=== PATIENT | male | born 1980 | race Caucasian/White ===

== ENCOUNTER 2018-01-19 09:45 | Day surgery (SDC) | payer OTHER ==
[~2018-01-19] VITALS: Ht 190.5 cm; Wt 90.7 kg
[2018-01-19] VITALS (12 sets, daily range): BP systolic 129–148; BP diastolic 74–88
[~2018-01-19 09:45] MED LIST: ceFAZolin 1gm/50ml Premix 50 ML IV ONE; celeBREX 200mg Cap **SURGERY PATIENTS ONLY ORAL ONE; oxyCONTIN 20mg tab ORAL ONE
[2018-01-19] MEDS ORDERED: Propofol 200mg/20ml IV ONE (10:17)
[2018-01-19] MEDS ORDERED: Lidocaine 1% MPF 10mg/ml 5ml ONE (10:17)
[2018-01-19] MEDS ORDERED: Dexamethasone 4mg/ml vial ONE ×2 (10:17→10:18)
[2018-01-19] MEDS ORDERED: Ropivacaine 5mg/ml Vial 30ml INJ ONE (10:18)
[2018-01-19] MEDS ORDERED: Alfentanil 2ml Inj ONE (10:28)
[2018-01-19] MEDS ORDERED: PROSCAR5 MG ORAL (10:45)
[2018-01-19] MEDS ORDERED: LR 1000ml 1,000 ML IVLG SCH (10:46)
--- NOTE | 2018-01-19 10:46 | Anethesia Preoperative Eval ---
Anesthesia Pre-op PMH/ROS General Date of Evaluation: Jan 19, 2018 Time of Evaluation: 11:26 Anesthesiologist: Burke ASA Score: ASA 1 Mallampati Score Class I : Soft palate, uvula, fauces, pillars visible Class II: Soft palate, uvula, fauces visible Class III: Soft palate, base of uvula visible Class IV: Only hard plate visible Mallampati Classification: Class I Surgeon: Raoul Diagnosis: L Arm Pain Surgical Procedure: L Pectoralis Major Repair Anesthesia History: none Family History: no anesthesia problems Allergies: Coded Allergies: No Known Allergies (Unverified , 01/18/18) Medications: see eMAR Anesthesia Pre-op Phys. Exam Physician Exam Last Vital Signs Date Time Temp Pulse Resp B/P (MAP) Pulse Ox O2 Delivery O2 Flow Rate FiO2 01/19/18 10:43 98.0 62 18 132/76 (94) 100 98.0 Constitutional: NAD Neurologic: CN 2-12 intact Cardiovascular: RRR Respiratory: CTA Gastrointestinal: S/NT/ND Airway Exam Mallampati Score: Class II MO: full ROM: full Teeth: intact Anesthesia Pre-op A/P Risk Assessment & Plan Assessment: ASA 1 Plan: GA, BIS, L Supraclavicular Block Status Change Before Surgery: No Pre-Antibiotics Dru Gram Ancef IV Given Within 1 Hr of Incision: Yes Time Given: 11:52 Jonathon Turk MD Jan 19, 2018 10:46
[2018-01-19] MEDS ORDERED: oxyCONTIN 20mg tab ORAL ONE (10:48)
[2018-01-19] MEDS ORDERED: celeBREX 200mg Cap **SURGERY PATIENTS ONLY ORAL ONE (10:48)
[2018-01-19 10:57] LABS: BASOPHILS % (AUTO) 1.7 % (0.0-2.0); EOSINOPHILS % (AUTO) 2.6 % (0.0-3.0); HEMATOCRIT 51.5 % (42.0-52.0); HEMOGLOBIN 16.9 G/DL (14.2-18.0); LYMPHOCYTES % (AUTO) 29.9 % (20.0-45.0); MEAN CORPUSCULAR VOLUME 89 FL (80-99); MONOCYTES % (AUTO) 7.5 % (1.0-10.0); NEUTROPHILS % (AUTO) 58.3 % (45.0-75.0); PLATELET COUNT 164 K/UL (150-450); RED CELL DISTRIBUTION WIDTH 11.3 % (11.6-14.8); WHITE BLOOD COUNT 4.6 K/UL (4.8-10.8)
[2018-01-19] MEDS ORDERED: Midazolam 2mg/2ml Inj IVP PRN (11:00)
[2018-01-19] MEDS ORDERED: LORazepam Inj 2mg/ml 1ml IV PRN (11:00)
[2018-01-19] MEDS ORDERED: DiphenhydrAMINE 50mg/ml Inj IVP PRN (11:00)
[2018-01-19] MEDS ORDERED: Labetalol 5mg/ml 20ml vial IV PRN (11:00)
[2018-01-19] MEDS ORDERED: Hydromorphone 0.5mg/0.5ml inj IVP PRN (11:00)
[2018-01-19] MEDS ORDERED: oxyCODONE HCL/Acetaminophen 5/325mg ORAL PRN (11:00)
[2018-01-19] MEDS ORDERED: Metoclopramide 10mg/2ml Inj IVP PRN (11:00)
[2018-01-19] MEDS ORDERED: Atropine Inj 1mg/10ml Syr IV PRN (11:00)
[2018-01-19] MEDS ORDERED: HYDROcodone/Acetamin 7.5/325 tab ORAL PRN (11:00)
[2018-01-19] MEDS ORDERED: fentaNYL 100 mcg/2 mL IV PRN (11:00)
[2018-01-19] MEDS ORDERED: Ketorolac 30mg Inj IV PRN ×2 (11:00)
[2018-01-19] MEDS ORDERED: Norco 5mg/325mg tab ORAL PRN ×2 (11:00→12:00)
[2018-01-19] MEDS ORDERED: LR 1000ml ONE (11:30)
[2018-01-19] MEDS ORDERED: Sterile Water Irrig 1000ml IRRIG ONE (11:30)
[2018-01-19] MEDS ORDERED: NS Irrig 1000ml ONE (11:30)
[2018-01-19 11:31] LABS: ALANINE AMINOTRANSFERASE 35 U/L (12-78); ALBUMIN 4.3 G/DL (3.4-5.0); ALBUMIN/GLOBULIN RATIO 1.2 (1.0-2.7); ALKALINE PHOSPHATASE 54 U/L (46-116); ANION GAP 11 mmol/L (5-15); ASPARTATE AMINO TRANSFERASE 32 U/L (15-37); BILIRUBIN,TOTAL 1.2 MG/DL (0.2-1.0); BLOOD UREA NITROGEN 23 mg/dL (7-18); CARBON DIOXIDE 24 MMOL/L (21-32); CHLORIDE 106 MMOL/L (98-107); CREATININE 1.1 MG/DL (0.55-1.30); POTASSIUM 4.1 MMOL/L (3.5-5.1); SODIUM 141 MMOL/L (136-145)
[2018-01-19 11:38] LABS: BILIRUBIN,DIRECT 0.2 MG/DL (0.0-0.3)
[2018-01-19] MEDS ORDERED: EPINEPHrine 1mg/1ml Amp ONE (11:52)
[2018-01-19] MEDS ORDERED: Lidocaine 1% 10mg/ml/Epi 0.005mg/ml 30ml vial INJ ONE (11:52)
[2018-01-19] MEDS ORDERED: Bupivacaine 0.25% Inj 30ml INJ ONE (11:52)
[2018-01-19] MEDS ORDERED: Bacitracin 50000 Units Vial ONE (11:53)
[2018-01-19] MEDS ORDERED: NeoSporin Gu Irrig 1ml Amp IRRIG ONE (11:53)
--- NOTE | 2018-01-19 11:57 | Pre-Procedure Note/Attestation ---
Pre-Procedure Note/Attestation Complete Prior to Procedure Planned Procedure: left Procedure Narrative: open pectorlais muscle repair Indications for Procedure Pre-Operative Diagnosis: left pectoralis muscle tear Attestation I attest that I discussed the nature of the procedure; its benefits; risks and complications; and alternatives (and the risks and benefits of such alternatives ), prior to the procedure, with the patient (or the patient's legal bank representative). I attest that, if there was a reasonable possibility of needing a blood transfusion, the patient (or the patient's legal bank representative) was given the [facility] standardized written summary, pursuant to the Devin Bertha Blood Safety Act ([place] Health and Safety Code # 1645, as amended). I attest that I re-evaluated the patient just prior to the surgery and that there has been no change in the patient's H&P, except as documented below: Navneet Silveira MD Jan 19, 2018 11:57
--- NOTE | 2018-01-19 11:57 | Operative Note - PDOC ---
Operative Note Operative Note Pre-op Diagnosis: left pectoralis muscle tear Procedure: see op report Post-op Diagnosis: same as pre-op plus Anesthesia: regional Specimen: none Complications: none Condition: stable Estimated Blood Loss: none Implant(s) used?: Yes Navneet Silveira MD Jan 19, 2018 11:57
[2018-01-19 12:00] LABS: CALCIUM 9.7 MG/DL (8.5-10.1)
[2018-01-19] MEDS ORDERED: D5 1/2NS 1,000 ML IV SCH (12:00)
[2018-01-19] MEDS ORDERED: Tylenol #3 tab (300mg/30mg) ORAL PRN (12:00)
[2018-01-19] MEDS ORDERED: HYDROmorphone 1mg/ml Carpuject SUBQ PRN (12:00)
--- NOTE | 2018-01-19 12:30 | Immediate Post-Op Evaluation ---
Immediate Post-Op Evalulation Immediate Post-Op Evalulation Procedure: L Pectoralis Major Repair Date of Evaluation: Jan 19, 2018 Time of Evaluation: 13:57 IV Fluids: 500 LR Blood Products: 0 Estimated Blood Loss: 40 Urinary Output: 0 Blood Pressure Systolic: 136 Blood Pressure Diastolic: 79 Pulse Rate: 64 Respiratory Rate: 16 O2 Sat by Pulse Oximetry: 100 Temperature (Fahrenheit): 97.2 Pain Score (1-10): 2 Nausea: No Vomiting: No Complications 0 Patient Status: awake, reacts, patent, none Hydration Status: adequate Dru Gram Ancef IV Given Within 1 Hr of Incision: Yes Time Given: 11:53 Jonathon Turk MD Jan 19, 2018 12:30
--- NOTE | 2018-01-19 12:30 | 48 Hour Post Anesthesia Eval ---
Post Anesthesia Evaluation Procedure: L Pectoralis Major Repair Date of Evaluation: Jan 19, 2018 Time of Evaluation: 15:58 Blood Pressure Systolic: 134 0: 74 Pulse Rate: 64 Respiratory Rate: 18 Temperature (Fahrenheit): 98.2 O2 Sat by Pulse Oximetry: 100 Airway: patent Nausea: No Vomiting: No Pain Intensity: 2 Hydration Status: adequate Cardiopulmonary Status: Stable Mental Status/LOC: patient returned to baseline Follow-up Care/Observations: 0 Post-Anesthesia Complications: 0 Follow-up care needed: ready to discharge Jonathon Turk MD Jan 19, 2018 12:30
[2018-01-19] MEDS ORDERED: Lidocaine 1% Plain 30 ml INJ ONE (12:32)
--- NOTE | 2018-01-20 02:30 | Operative Note - Dictated ---
DATE OF OPERATION: 01/19/2018 PREOPERATIVE DIAGNOSIS: Left pectoralis major muscle tear. POSTOPERATIVE DIAGNOSIS: Left pectoralis major muscle tear. PROCEDURE: Open left pectoralis major repair, EndoButton. SURGEON: Navneet Silveira M.D. ANESTHESIA: Interscalene with general. INDICATION FOR PROCEDURE: The patient is a pleasant gentleman, who sustained a tear of the pectoralis major muscle. He has pain, deformity, difficulty with activities of daily living, therefore elected to undergo left shoulder open pectoralis major muscle repair. Risks, limitations, expectations, and complications of procedure were discussed in detail. All questions addressed. DESCRIPTION OF PROCEDURE: After informed consent was obtained, the patient was brought to the operating room. We placed the patient under general anesthesia. Interscalene block was placed. Left arm was prepped and draped in a sterile manner. An axillary incision was then made. The sternal head of the pectoralis major muscle was identified, mobilized and tacked with 3 FiberTape anchors. The anterior aspect of the humeral shaft was identified just lateral to the biceps tendon. The soft tissue was removed and was decorticated and 3 unicortical buttons were also placed. Once that was done, using Arthrex button technique, 3 buttons were placed in the cortical bone. The pectoralis major was then advanced to this area. It was nice and secure. Wound was copiously irrigated. Skin was closed using 3-0 Vicryl, 3-0 Monocryl, Steri-Strips, and a sterile dressing was applied. The patient was awoken and taken to recovery room with stable vital signs. ESTIMATED BLOOD LOSS: None. COMPLICATIONS: None. SPECIMENS: None. IMPLANTS: Include Arthrex pectoralis major muscle repair, EndoButton. Navneet Silveira M.D. DR: SANFORD JOB#: [id number] CC: SAMI
== END 2018-01-19 16:00 | disposition home or self-care (01) ==
LOC: SUR 09:45
DX: S29.011A Strain of muscle and tendon of front wall of thorax, initial encounter (principal)
CPT/HCPCS: 21899; 36415; 80053; 82248; 85025; 85610; 85730; J0690; J1100; J1170; J1885; J2001; J2250; J2405; J2704; J2795; J3490; J7120; 94003; 94150